=== PATIENT | male | born 1975 | race Caucasian/White ===

== ENCOUNTER 2021-02-10 19:13 | Emergency (ER) | payer OTHER ==
[~2021-02-10] VITALS: Ht 177.8 cm; Wt 87.1 kg
[2021-02-10 19:13] VITALS: BP_SYST 135
--- NOTE | 2021-02-10 19:13 | NUR ---
Placed in room 04 . Placed on lunchroom monitor, blood pressure machine and pulse oximeter. To gown for exam. Side rails up. Report given to MARILYN BERGMAN
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
[2021-02-10 20:23] LABS: BASOPHILS % (AUTO) 0.6 % (0.0-2.0); EOSINOPHILS % (AUTO) 0.6 % (0.0-4.0); HEMATOCRIT 41.4 % (36-54); LYMPHOCYTES # (AUTO) 2.2 K/uL (1.0-5.5); LYMPHOCYTES % (AUTO) 27.8 % (20.5-51.5); MEAN CORPUSCULAR HEMOGLOBIN 30 pg (27-31); MEAN CORPUSCULAR HGB CONC 34 % (32-36); MEAN CORPUSCULAR VOLUME 88 fL (79.0-98.0); MONOCYTES # (AUTO) 0.8 K/uL (0.0-1.0); MONOCYTES % (AUTO) 9.6 % (1.7-9.3); NEUTROPHILS # (AUTO) 4.8 K/uL (1.8-7.7); NEUTROPHILS % (AUTO) 61.4 % (40.0-70.0); PLATELET COUNT (AUTO) 187 K/uL (130-430); RED BLOOD CELL COUNT(AUTO) 4.71 MIL/uL (4.2-6.2); RED CELL DISTRIBUTION WIDTH 13.1 % (9.0-15.0); WHITE BLOOD COUNT (AUTO) 7.9 K/uL (4.8-10.8)
[2021-02-10 20:27] LABS: CALCIUM 8.7 mg/dL (8.4-11.0)
[2021-02-10 20:28] LABS: CREATININE 1.41 mg/dL (0.55-1.30)
[2021-02-10 20:29] LABS: PROTHROMBIN TIME 10.4 SECS (9.5-12.5)
--- NOTE | 2021-02-10 20:30 | NUR ---
Pt JAX to CT with tech
[2021-02-10 20:32] LABS: ALBUMIN 4.1 g/dL (3.4-4.8); TOTAL BILIRUBIN 1.3 mg/dL (0.0-1.0)
[2021-02-10] MEDS ORDERED: IBUPROFEN 600 MG TABLET ONE (20:39)
--- NOTE | 2021-02-10 20:40 | NUR ---
Pt back from radiology
[2021-02-10] MEDS ORDERED: IBUPROFEN 600 MG TABLET PO ONE (20:45)
--- NOTE | 2021-02-10 20:46 | NUR ---
Dr. Frazier at bedside
--- NOTE | 2021-02-10 21:30 | NUR ---
Patient resting quietly. No acute distress noted. Vital signs within normal range.
--- NOTE | 2021-02-10 23:45 | NUR ---
Patient resting quietly. No acute distress noted. Vital signs within normal range.
[2021-02-10] MEDS ORDERED: TRAM50TA2 PO (23:59)
[2021-02-11] MEDS ORDERED: IBUP-1969 PO (00:01)
[2021-02-11 00:30] VITALS: BP_SYST 141
--- NOTE | 2021-02-11 00:30 | NUR ---
Patient given written and verbal discharge instructions and verbalizes understanding. ER MD discussed with patient the results and treatment provided. Patient in stable condition. ID arm band removed. IV catheter removed intact and dressing applied, no active bleeding. Rx of MOTRIN, TRAMADOL given. Patient educated on pain management and to follow up with PMD. Pain Scale 5/10. Opportunity for questions provided and answered. Medication side effect fact sheet provided.
== END 2021-02-11 00:30 | disposition home or self-care (01) ==
LOC: SED 19:13
DX: S06.0X0A Concussion without loss of consciousness, initial encounter (principal); S16.1XXA Strain of muscle, fascia and tendon at neck level, initial encounter; S80.02XA Contusion of left knee, initial encounter; S30.0XXA Contusion of lower back and pelvis, initial encounter; Z88.0 Allergy status to penicillin; V09.9XXA Pedestrian injured in unspecified transport accident, initial encounter; Y93.89 Activity, other specified; Y92.89 Other specified places as the place of occurrence of the external cause; Y99.8 Other external cause status
CPT/HCPCS: 36415; 70450-TC; 71045; 72125-TC; 72170-TC; 73564; 76376; 80053; 82550; 84484; 85025; 85610-TC; 85730-TC; 93005; 99285

== ENCOUNTER 2021-05-28 18:07 | Emergency (ER) | payer OTHER ==
[~2021-05-28] VITALS: Ht 177.8 cm; Wt 90.7 kg
[2021-05-28 18:07] VITALS: BP_SYST 158
[~2021-05-28 18:07] MED LIST: IBUP-1969 PO; TRAM50TA2 PO
--- NOTE | 2021-05-28 18:07 | NUR ---
BROUGHT BACK TO BED #8 USING WALKER TO ASSIST AMBULATION, WITH PT FOR SUPPORT, PT TRIAGED. REPORT GIVEN TO YANG
--- NOTE | 2021-05-28 18:14 | NUR ---
DR MILES AT BEDSIDE FOR EVALUATION
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
[2021-05-28] MEDS ORDERED: ONDANSETRON 4 MG ODT TAB PO ONE (18:30)
[2021-05-28] MEDS ORDERED: HYDR-3917 PO (18:30)
[2021-05-28] MEDS ORDERED: IBUP-1971 PO (18:30)
[2021-05-28] MEDS ORDERED: MORPHINE SULFATE 10 MG/ML VIAL IM ONE (18:30)
--- NOTE | 2021-05-28 18:30 | NUR ---
medicated the pt according to md order
[2021-05-28 18:56] VITALS: BP_SYST 158
--- NOTE | 2021-05-28 18:58 | NUR ---
Patient given written and verbal discharge instructions and verbalizes understanding. ER MD discussed with patient the results and treatment provided. Patient in stable condition. ID arm band removed. Rx of norco and motrin given. Patient educated on pain management and to follow up with PMD. Pain Scale 3/10. Opportunity for questions provided and answered. Medication side effect fact sheet provided.
== END 2021-05-28 19:00 | disposition home or self-care (01) ==
LOC: SED 18:07
DX: S83.206A Unspecified tear of unspecified meniscus, current injury, right knee, initial encounter (principal); M25.461 Effusion, right knee; Z88.0 Allergy status to penicillin; Z79.899 Other long term (current) drug therapy; X50.0XXA Overexertion from strenuous movement or load, initial encounter; Y93.89 Activity, other specified; Y92.89 Other specified places as the place of occurrence of the external cause; Y99.0 Civilian activity done for income or pay
CPT/HCPCS: 29505; 96372; 99283; J2270; Q0162

== ENCOUNTER 2021-05-29 08:50 | Emergency (ER) | payer OTHER ==
[~2021-05-29] VITALS: Ht 177.8 cm; Wt 90.7 kg
[~2021-05-29 08:50] MED LIST changes: +HYDR-3917 PO; +IBUP-1971 PO
[2021-05-29 09:16] VITALS: BP_SYST 133
--- NOTE | 2021-05-29 09:50 | NUR ---
Pt. bib with c/o 9/10 pain to Right knee, pain started yesterday and was seen here at [facility] and prescribed [place] but pharmacy closed and unable to fill prescription. Took 600 mg of Motrin this morning at 0700 with no pain relief. Pt. has hx. of knee problems and surgery to right knee in 2013 but pt. states this pain is diffeent than anything he has had before.
--- NOTE | 2021-05-29 09:50 | NUR ---
Placed in bed 6 by Earnest alonzo rec'd
[2021-05-29] MEDS ORDERED: OXYCODONE/ACETAMINOPHEN 5-325 TABLET PO ONE (10:45)
--- NOTE | 2021-05-29 10:58 | NUR ---
Patient transported to radiology via walker, accompanied by staff.
--- NOTE | 2021-05-29 11:05 | NUR ---
MACI Leigh at bedside examining patient.
--- NOTE | 2021-05-29 11:53 | NUR ---
knee brace applied as ordered
--- NOTE | 2021-05-29 12:20 | NUR ---
Patient given written and verbal discharge instructions and verbalizes understanding. ER Dr. Frazier discussed with patient the results and treatment provided. Patient in stable condition. ID arm band removed. Patient educated on pain management and to follow up with PMD. Pain Scale 3. Opportunity for questions provided and answered. Medication side effect fact sheet provided.
[2021-05-29 12:21] VITALS: BP_SYST 149
== END 2021-05-29 12:21 | disposition home or self-care (01) ==
LOC: SED 08:50
DX: M23.91 Unspecified internal derangement of right knee (principal); G89.29 Other chronic pain; M25.561 Pain in right knee; Z88.0 Allergy status to penicillin; Z79.899 Other long term (current) drug therapy
CPT/HCPCS: 73560-TC; 99283

== ENCOUNTER 2023-02-13 09:00 | Emergency (ER) | payer OTHER ==
[~2023-02-13] VITALS: Ht 175.3 cm; Wt 90.7 kg
[2023-02-13 09:08] VITALS: BP_SYST 145
--- NOTE | 2023-02-13 09:19 | NUR ---
PT BIB SELF FROM HOME WITH C/O SEVERE RIGHT KNEE PAIN - 08/06. PT STATES HE HAS HAD THE PAIN FOR ONE WEEK. PT STATES HE WENT TO AN URGENT CARE LAST NIGHT DUE TO THE PAIN AND WAS RECOMMENDED TO GO TO AN ED FOR FURTHER EVALUATION. PT USES CRUCHES TO WALK. HX - RIGHT KNEE SURGERY, RIGHT KNEE DEBRIDEMENT, HTN. PT IS AAX04, VSS, NAD, PT IS BREATHING EVEN AND UNLABORED. 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 PT AMBULATORY WITH STEADY GAIT. HOB ELEVATED, SIDE RAILS UP, BED IN LOWEST POSITION, CALL LIGHT WITHIN REACH. SAFETY PRECAUTION AND COMFORT MEASURES IN PLACE. PENDING MD BLOUNT AND ORDERS.
--- NOTE | 2023-02-13 09:21 | NUR ---
DR. SMITH AT BEDSIDE EXAMINING THE PT.
[2023-02-13] MEDS ORDERED: ONDANSETRON 4 MG ODT TAB PO ONE (10:00)
[2023-02-13] MEDS ORDERED: MORPHINE 4 MG INJ. 4 MG/ML VIAL IM ONE (10:00)
[2023-02-13] MEDS ORDERED: HYDR-3927 PO (11:38)
[2023-02-13 11:52] VITALS: BP_SYST 130
--- NOTE | 2023-02-13 11:52 | NUR ---
PT MEDICALLY CLEARED FOR DISCHARGE. D/C INSTRUCTIONS GIVEN TO PT. PT TO FOLLOW-UP WITH PCP WITHIN 1-3 DAYS AND TO RETURN TO ED FOR WORSENING S/S. PT VERBALZIED UNDERSTANDING. PT AAX04, NAD, WRISTBAND REMOVED. PT AMBULATORY WITH STEADY GAIT. PT LEFT ED WITH ALL BELONGINGS.
== END 2023-02-13 11:52 | disposition home or self-care (01) ==
LOC: SED 09:00
DX: M25.561 Pain in right knee (principal); Z88.0 Allergy status to penicillin; Z79.899 Other long term (current) drug therapy
CPT/HCPCS: 99283; 29505; 73564; 96372; Q0162; J2270

== ENCOUNTER 2023-02-27 15:33 | Emergency (ER) | payer OTHER ==
[~2023-02-27] VITALS: Ht 177.8 cm; Wt 88.5 kg
[~2023-02-27 15:33] MED LIST changes: +HYDR-3927 PO
[2023-02-27 15:34] VITALS: BP_SYST 150
--- NOTE | 2023-02-27 15:35 | NUR ---
Patient triaged and placed in waiting room. VSS and patient appears in no acute distress at this time. Accompanied by SELF, awaiting available bed, and MD notified of need for MSE.
--- NOTE | 2023-02-27 15:40 | NUR ---
PT STATES THAT HE WAS SEEN HERE ON 02/13 FOR RIGHT KNEE PAIN AND STILL WITH SWELLING AND PAIN ONCE HE TRIED TO GO BACK TO WORK. PT STATES HE DID NOT USE ALL HIS PAIN MEDICATION.
--- NOTE | 2023-02-27 16:45 | NUR ---
DR ALDRICH OUT TO TRIAGE ROOM FOR EVALUATION
--- NOTE | 2023-02-27 17:05 | NUR ---
Patient given written and verbal discharge instructions and verbalizes understanding. ER MD discussed with patient the results and treatment provided. Patient in stable condition. ID arm band removed. Rx of NONE given. Patient educated on pain management and to follow up with PMD. Pain Scale 0/10. Opportunity for questions provided and answered. Medication side effect fact sheet provided.
== END 2023-02-27 17:05 | disposition home or self-care (01) ==
LOC: SED 15:33
DX: M23.91 Unspecified internal derangement of right knee (principal); M25.561 Pain in right knee; G89.29 Other chronic pain; Z88.0 Allergy status to penicillin; Z79.899 Other long term (current) drug therapy
CPT/HCPCS: 99281